=== PATIENT | male | born 1980 | race Caucasian/White ===

== ENCOUNTER 2018-08-10 17:29 | Emergency (ER) | payer SELFPAY ==
--- NOTE | 2018-08-10 17:50 | EDM.PDOC ---
ED HPI GENERAL MEDICAL PROBLEM - General Chief Complaint: ENT Problem Stated Complaint: SORE THROAT Time Seen by Provider: 08/10/18 17:31 Source of Information: Reports: Patient History Limitations: Reports: No Limitations - History of Present Illness INITIAL COMMENTS - FREE TEXT/NARRATIVE: HISTORY AND PHYSICAL: History of present illness: Patient is a 34-year-old male who presents to the emergency room today with complaints of sore throat, productive cough and body aches 5 days. He states he has been using [id number] Tylenol, cough and cold and Mucinex without any relief. Patient was a previous smoker but quit last December. Patient denies any fever, chills, headache, change in vision, syncope or near syncope. Denies any chest pain, back pain, or neck stiffness. Denies any abdominal pain, nausea , vomiting, diarrhea, constipation or dysuria. Has not noted any blood in urine or stool. Patient has been eating and drinking appropriately. Review of systems: As per history of present illness and below otherwise all systems reviewed and negative. Past medical history: As per history of present illness and as reviewed below otherwise noncontributory. Surgical history: As per history of present illness and as reviewed below otherwise noncontributory. Social history: See social history for further information Family history: As per history of present illness and as reviewed below otherwise noncontributory. Physical exam: General: Well-developed and well-nourished 38 year old male. Alert and oriented. Nontoxic appearing and in no acute distress. HEENT: Atraumatic, normocephalic, pupils equal and reactive bilaterally, negative for conjunctival pallor or scleral icterus, mucous membranes moist, TMs normal bilaterally, throat clear, neck supple, nontender, trachea midline. No drooling or trismus noted. No meningeal signs. No hot potato voice noted. Lungs: Clear to auscultation, breath sounds equal bilaterally, chest nontender. Heart: S1S2, regular rate and rhythm without overt murmur Abdomen: Soft, nondistended, nontender. Negative for masses or hepatosplenomegaly. Negative for costovertebral tenderness. Pelvis: Stable nontender. Genitourinary: Deferred. Rectal: Deferred. Skin: Intact, warm, dry. No lesions or rashes noted. Extremities: Atraumatic, moves all extremities per self without difficulty or deficits, negative for cords or calf pain. Neurovascular unremarkable. Neuro: Awake, alert, oriented. Cranial nerves II through XII unremarkable. Cerebellum unremarkable. Motor and sensory unremarkable throughout. Exam nonfocal. Notes: Chest x-ray shows no acute findings. I will place him on Z-Nolan and give him Phenergan with codeine as he states he has had no relief with [id number] products. Supportive care measures were reviewed and discussed. Voices understanding and is agreeable to plan of care. Denies any further questions or concerns at this time. Diagnostics: Chest x-ray Therapeutics: None Prescription: Z-nolan Phenergan w/ Codeine (#4oz) Impression: Pharyngitis Bronchitis Plan: 1. Take the antibiotics as prescribed. 2. Tylenol and/or ibuprofen as needed for pain management. Phenergan with codeine as directed. This medication may cause drowsiness; so do not take it while at work, driving, or needing to be functioning outside the house. 3. Follow-up with your primary caregiver as needed and as discussed. Return to the ED as needed and as discussed. Definitive disposition and diagnosis as appropriate pending reevaluation and review of above. - Related Data Allergies Allergy/AdvReac Type Severity Reaction Status Date / Time No Known Allergies Allergy Verified 08/10/18 17:38 Home Meds: Home Meds . [No Known Home Meds] 08/10/18 [History] Past Medical History - Past Health History Medical/Surgical History: Denies Medical/Surgical History HEENT History: Reports: None Cardiovascular History: Reports: None Respiratory History: Reports: None Gastrointestinal History: Reports: None Genitourinary History: Reports: None Musculoskeletal History: Reports: None Neurological History: Reports: None Psychiatric History: Reports: None Endocrine/Metabolic History: Reports: None Hematologic History: Reports: None Immunologic History: Reports: None Oncologic (Cancer) History: Reports: None Dermatologic History: Reports: None - Past Surgical History Head Surgeries/Procedures: Reports: None HEENT Surgical History: Reports: None Cardiovascular Surgical History: Reports: None Respiratory Surgical History: Reports: None GI Surgical History: Reports: None Male Surgical History: Reports: None Endocrine Surgical History: Reports: None Neurological Surgical History: Reports: None Musculoskeletal Surgical History: Reports: None Oncologic Surgical History: Reports: None Dermatological Surgical History: Reports: None Social & Family History - Family History Family Medical History: Noncontributory - Tobacco Use Smoking Status *Q: Former Smoker Used Tobacco, but Quit: Yes Month/Year Tobacco Last Used: [email or web address] - Caffeine Use Caffeine Use: Reports: Energy Drinks - Recreational Drug Use Recreational Drug Use: No ED ROS ENT - Review of Systems Review Of Systems: ROS reveals no pertinent complaints other than HPI. ED EXAM, ENT - Physical Exam Exam: See Below (See dictation) Course - Vital Signs Last Recorded V/S: Last Vital Signs Temp 97.3 F 08/10/18 17:39 Pulse 83 08/10/18 17:39 Resp 18 08/10/18 17:39 BP 163/99 H 08/10/18 17:39 Pulse Ox 97 08/10/18 17:39 Departure - Departure Time of Disposition: 18:22 Disposition: Home, Self-Care 01 Clinical Impression: Bronchitis Pharyngitis Qualifiers: Pharyngitis/tonsillitis etiology: unspecified etiology Qualified Code(s): J02.9 - Acute pharyngitis, unspecified - Discharge Information Referrals: PCP,None [Primary Care Provider] - Forms: ED Department Discharge Additional Instructions: The following information is given to patients seen in the emergency department who are being discharged to home. This information is to outline your options for follow-up care. We provide all patients seen in our emergency department with a follow-up referral. The need for follow-up, as well as the timing and circumstances, are variable depending upon the specifics of your emergency department visit. If you don't have a primary care physician on staff, we will provide you with a referral. We always advise you to contact your personal physician following an emergency department visit to inform them of the circumstance of the visit and for follow-up with them and/or the need for any referrals to a consulting specialist. The emergency department will also refer you to a specialist when appropriate. This referral assures that you have the opportunity for follow-up care with a specialist. All of these measure are taken in an effort to provide you with optimal care, which includes your follow-up. Under all circumstances we always encourage you to contact your private physician who remains a resource for coordinating your care. When calling for follow-up care, please make the office aware that this follow-up is from your recent emergency room visit. If for any reason you are refused follow-up, please contact the [facility] Emergency Department at and asked to speak to the emergency department charge nurse. [facility] [address], [place] [address] [facility] [address] [place] [id number] 1. Take the antibiotics as prescribed. 2. Tylenol and/or ibuprofen as needed for pain management. Phenergan with codeine as directed. This medication may cause drowsiness; so do not take it while at work, driving, or needing to be functioning outside the house. 3. Follow-up with your primary caregiver as needed and as discussed. Return to the ED as needed and as discussed.
--- NOTE | 2018-08-10 18:17 | CR ---
INDICATION: Cough, dyspnea, dysphagia for 4 days TECHNIQUE: Chest 2 views. COMPARISON: None FINDINGS: Cardiovascular and mediastinum: Heart size and vasculature are normal in caliber and appearance. Mediastinum is within normal limits. Lungs and pleural spaces: Lungs are clear. No sign of infiltrate or mass. No sign of pleural effusion. No pneumothorax. Bones and soft tissues: No significant findings. IMPRESSION: No sign of acute disease. Dictated by Aleena Kinney MD @ Aug 10 2018 6:16PM Signed by Dr. Aleena Kinney @ Aug 10 2018 6:16PM
[2018-08-11 00:14] VITALS: BP 143/96
== END 2018-08-10 18:32 | disposition home or self-care (01) ==
LOC: MW.ED 17:29
DX: J40 Bronchitis, not specified as acute or chronic (principal); J02.9 Acute pharyngitis, unspecified; Z87.891 Personal history of nicotine dependence
CPT/HCPCS: 71046; 71046-26; 99283-25

== ENCOUNTER 2018-09-15 19:01 | Emergency (ER) | payer BC ==
--- NOTE | 2018-09-15 20:38 | CR ---
INDICATION: Pain after fall down stairs. COMPARISON: None available. FINDINGS: AP, lateral and oblique views of the left ankle were obtained for a total of three views. There is an acute, oblique fracture of the lateral malleolus with approximately 25 percent posterior displacement of the minor fracture fragment. This is probably an intra-articular fracture. There is mild soft tissue swelling overlying the fracture site. There is no sign of additional fracture or dislocation. The ankle mortise is intact. The talar dome is intact. There is no sign of a joint effusion. No degenerative changes are seen. IMPRESSION: Acute, mildly displaced, intra-articular fracture of the lateral malleolus. Dictated by Niko Weir MD @ Sep 15 2018 8:34PM Signed by Dr. Niko Weir @ Sep 15 2018 8:36PM
--- NOTE | 2018-09-15 20:40 | CR ---
HISTORY: Pain after fall down stairs. COMPARISON: Left ankle from today. No previous foot films. FINDINGS: The left foot is examined with AP, lateral, and oblique views. The acute, moderately displaced fracture of the lateral malleolus is described on the accompanying ankle report. There is no sign of foot fracture or dislocation. There is mild swelling of the dorsal anterior foot, with no sign of any associated fracture of the metatarsals. Incidental note is made of a bone island in the lateral aspect of the proximal shaft of the 1st metatarsal. No significant degenerative disease is seen. IMPRESSION: No sign of acute osseous injury to the foot. Fracture of the lateral malleolus described on the accompanying ankle report. Dictated by Niko Weir MD @ Sep 15 2018 8:36PM Signed by Dr. Niko Weir @ Sep 15 2018 8:38PM
--- NOTE | 2018-09-15 20:50 | EDM.PDOC ---
ED HPI GENERAL MEDICAL PROBLEM - General Chief Complaint: Lower Extremity Injury/Pain Stated Complaint: LEFT FOOT INJURY Time Seen by Provider: 09/15/18 20:47 Source of Information: Reports: Patient - History of Present Illness INITIAL COMMENTS - FREE TEXT/NARRATIVE: HISTORY AND PHYSICAL: History of present illness: []Patient presents with left ankle pain after twisting his ankle on Friday 3- 4 days prior to arrival, moderate bruising and tenderness over the lateral malleolus unable to bear weight as well as pain across the dorsum of the foot, left lower extremity unaffected above the ankle entirely limb neurovascularly intact no open lesion No fever nausea vomiting chills sweats no other injury per patient Review of systems: As per history of present illness and below otherwise all systems reviewed and negative. Past medical history: As per history of present illness and as reviewed below otherwise noncontributory. Surgical history: As per history of present illness and as reviewed below otherwise noncontributory. Social history: No reported history of drug or alcohol abuse. Family history: As per history of present illness and as reviewed below otherwise noncontributory. Physical exam: HEENT: Atraumatic, normocephalic, pupils reactive, negative for conjunctival pallor or scleral icterus, mucous membranes moist, throat clear, neck supple, nontender, trachea midline. Lungs: Clear to auscultation, breath sounds equal bilaterally, chest nontender. Heart: S1S2, regular, negative for clicks, rubs, or JVD. Abdomen: Soft, nondistended, nontender. Negative for masses or hepatosplenomegaly. Negative for costovertebral tenderness. Pelvis: Stable nontender. Genitourinary: Deferred. Rectal: Deferred. Extremities: Atraumatic, negative for cords or calf pain. Neurovascular unremarkable. Left lower extremity as per history of present illness Neuro: Awake, alert, oriented. Cranial nerves II through XII unremarkable. Cerebellum unremarkable. Motor and sensory unremarkable throughout. Exam nonfocal. Diagnostics: [Left ankle 3 views Left foot 3 views ] Therapeutics: [Cam boot crutches nonweightbearing Rest ice ibuprofen ] Impression: [ eft ankle injury ] Definitive disposition and diagnosis as appropriate pending reevaluation and review of above. left foot Pain Score (Numeric/FACES): 8 - Related Data Allergies Allergy/AdvReac Type Severity Reaction Status Date / Time No Known Allergies Allergy Verified 09/15/18 19:13 Home Meds: Home Meds . [No Known Home Meds] 08/10/18 [History] Past Medical History - Past Health History Medical/Surgical History: Denies Medical/Surgical History HEENT History: Reports: None Cardiovascular History: Reports: None Respiratory History: Reports: None Gastrointestinal History: Reports: None Genitourinary History: Reports: None Musculoskeletal History: Reports: None Neurological History: Reports: None Psychiatric History: Reports: None Endocrine/Metabolic History: Reports: None Hematologic History: Reports: None Immunologic History: Reports: None Oncologic (Cancer) History: Reports: None Dermatologic History: Reports: None - Infectious Disease History Infectious Disease History: Reports: None - Past Surgical History Head Surgeries/Procedures: Reports: None HEENT Surgical History: Reports: None Cardiovascular Surgical History: Reports: None Respiratory Surgical History: Reports: None GI Surgical History: Reports: None Male Surgical History: Reports: None Endocrine Surgical History: Reports: None Neurological Surgical History: Reports: None Musculoskeletal Surgical History: Reports: None Oncologic Surgical History: Reports: None Dermatological Surgical History: Reports: None Social & Family History - Family History Family Medical History: Noncontributory - Tobacco Use Smoking Status *Q: Never Smoker - Caffeine Use Caffeine Use: Reports: Energy Drinks - Recreational Drug Use Recreational Drug Use: No Review of Systems - Review of Systems Review Of Systems: See Below ED EXAM, GENERAL - Physical Exam Exam: See Below Course - Vital Signs Last Recorded V/S: Last Vital Signs Temp 97.8 F 09/15/18 19:14 Pulse 85 09/15/18 19:14 Resp 16 09/15/18 19:14 BP 152/108 H 09/15/18 19:14 Pulse Ox 97 09/15/18 19:14 Departure - Departure Time of Disposition: 20:49 Disposition: Home, Self-Care 01 Condition: Good Clinical Impression: Left ankle injury - Discharge Information Referrals: PCP,None [Primary Care Provider] - Additional Instructions: Cam boot crutches nonweightbearing Rest ice ibuprofen Follow-up with orthopedist, call phone number below to schedule appropriate follow-up [facility] [address], [address] [place] [address] my orthopedic The following information is given to patients seen in the emergency department who are being discharged to home. This information is to outline your options for follow-up care. We provide all patients seen in our emergency department with a follow-up referral. The need for follow-up, as well as the timing and circumstances, are variable depending upon the specifics of your emergency department visit. If you don't have a primary care physician on staff, we will provide you with a referral. We always advise you to contact your personal physician following an emergency department visit to inform them of the circumstance of the visit and for follow-up with them and/or the need for any referrals to a consulting specialist. The emergency department will also refer you to a specialist when appropriate. This referral assures that you have the opportunity for follow-up care with a specialist. All of these measure are taken in an effort to provide you with optimal care, which includes your follow-up. Under all circumstances we always encourage you to contact your private physician who remains a resource for coordinating your care. When calling for follow-up care, please make the office aware that this follow-up is from your recent emergency room visit. If for any reason you are refused follow-up, please contact the [facility] emergency department at and asked to speak to the emergency department charge nurse.
[2018-09-15 21:42] VITALS: BP 140/95
== END 2018-09-15 20:56 | disposition home or self-care (01) ==
LOC: MW.ED 19:01
DX: S90.02XA Contusion of left ankle, initial encounter (principal); X50.1XXA Overexertion from prolonged static or awkward postures, initial encounter
CPT/HCPCS: 73610-26-LT; 73610-LT; 73630-26-LT; 73630-LT; 99283-25

== ENCOUNTER 2018-09-18 20:06 | Emergency (ER) | payer BC ==
--- NOTE | 2018-09-18 20:13 | EDM.PDOC ---
ED HPI GENERAL MEDICAL PROBLEM - General Stated Complaint: FRACTURE PAIN Time Seen by Provider: 09/18/18 20:08 Source of Information: Reports: Patient History Limitations: Reports: No Limitations - History of Present Illness INITIAL COMMENTS - FREE TEXT/NARRATIVE: HISTORY AND PHYSICAL: History of present illness: Patient is a 38-year-old male who presents to the emergency room today with complaints of left ankle pain. He was seen in the emergency room on 09/15/18 for a 3-day-old in color injury. X-ray on 09/15/18 shows an acute, mildly displaced, intra-articular fracture of the lateral malleolus. He was given a cam walker boot and crutches. Encouraged to follow-up with primary care. At that time he declined pain medication and was told to use Tylenol and ibuprofen over-the- counter. Denies any new injury, trauma or falls. Denies any numbness, tingling or saddle paresthesia. Review of systems: As per history of present illness and below otherwise all systems reviewed and negative. Past medical history: As per history of present illness and as reviewed below otherwise noncontributory. Surgical history: As per history of present illness and as reviewed below otherwise noncontributory. Social history: See social history for further information Family history: As per history of present illness and as reviewed below otherwise noncontributory. Physical exam: General: Well-developed and well-nourished 30 child male. Alert and oriented. Nontoxic appearing and in no acute distress. HEENT: Atraumatic, normocephalic, pupils equal and reactive bilaterally, negative for conjunctival pallor or scleral icterus, mucous membranes moist, trachea midline. No drooling or trismus noted. No meningeal signs. No hot potato voice noted. Lungs: Clear to auscultation, breath sounds equal bilaterally, chest nontender. Heart: S1S2, regular rate and rhythm without overt murmur Extremities: Ambulatory into the emergency room without difficulty or deficits. Pain with palpation of the left lateral ankle with nursing noted to the anterior foot into the toes. Strong pedal pulse bilaterally. Otherwise moves all other extremities per self without difficulty or deficits, negative for cords or calf pain. Neurovascular unremarkable. Neuro: Awake, alert, oriented. Cranial nerves II through XII unremarkable. Cerebellum unremarkable. Motor and sensory unremarkable throughout. Exam nonfocal. Notes: Discussed the importance of following up with the orthopedic provider. Medication and supportive care measures were reviewed and discussed. Voices understanding and is agreeable to plan of care. Denies any further questions or concerns at this time. Diagnostics: None Therapeutics: [place] Prescription: Tramadol (#30) Impression: Encounter for pain management History of ankle fracture Plan: 1. Rest, ice, elevate the affected extremity. Continue using the crutches and CAM walker boot 2. Tylenol and/or Ibuprofen as needed for pain management. Tramadol for moderate to severe pain. This medication may cause drowsiness a do not take it will driving her needing to be functioning outside of the house. 3. Follow up with the Orthopedic provider as we discussed. Return to the ED as needed and as discussed. Definitive disposition and diagnosis as appropriate pending reevaluation and review of above. left ankle Pain Score (Numeric/FACES): 8 - Related Data Allergies Allergy/AdvReac Type Severity Reaction Status Date / Time No Known Allergies Allergy Verified 09/18/18 20:16 Home Meds: Home Meds traMADol [Ultram] 50 mg PO Q4H PRN #30 tab 09/18/18 [Rx] Past Medical History - Past Health History Medical/Surgical History: Denies Medical/Surgical History HEENT History: Reports: None Cardiovascular History: Reports: None Respiratory History: Reports: None Gastrointestinal History: Reports: None Genitourinary History: Reports: None Musculoskeletal History: Reports: None Neurological History: Reports: None Psychiatric History: Reports: None Endocrine/Metabolic History: Reports: None Hematologic History: Reports: None Immunologic History: Reports: None Oncologic (Cancer) History: Reports: None Dermatologic History: Reports: None - Infectious Disease History Infectious Disease History: Reports: None - Past Surgical History Head Surgeries/Procedures: Reports: None HEENT Surgical History: Reports: None Cardiovascular Surgical History: Reports: None Respiratory Surgical History: Reports: None GI Surgical History: Reports: None Male Surgical History: Reports: None Endocrine Surgical History: Reports: None Neurological Surgical History: Reports: None Musculoskeletal Surgical History: Reports: None Oncologic Surgical History: Reports: None Dermatological Surgical History: Reports: None Social & Family History - Family History Family Medical History: Noncontributory - Caffeine Use Caffeine Use: Reports: Energy Drinks Review of Systems - Review of Systems Review Of Systems: ROS reveals no pertinent complaints other than HPI. ED EXAM, GENERAL - Physical Exam Exam: See Below (See dictation) Course - Vital Signs Last Recorded V/S: Last Vital Signs Temp 97.8 F 09/18/18 20:16 Pulse 86 09/18/18 20:16 Resp 88 H 09/18/18 20:16 BP 146/104 H 09/18/18 20:16 Pulse Ox 98 09/18/18 20:16 - Orders/Labs/Meds Orders: Active Orders 24 hr Category Date Time Status Acetaminophen/HYDROcodone [[place] 325-5 MG] Med 09/18/18 20:23 Once 2 tab PO ONETIME ONE Departure - Departure Time of Disposition: 20:26 Disposition: Home, Self-Care 01 Clinical Impression: Encounter for pain management, History of ankle fracture - Discharge Information Prescriptions: traMADol [Ultram] 50 mg PO Q4H PRN #30 tab PRN Reason: Pain Instructions: Acute Pain, Adult Additional Instructions: The following information is given to patients seen in the emergency department who are being discharged to home. This information is to outline your options for follow-up care. We provide all patients seen in our emergency department with a follow-up referral. The need for follow-up, as well as the timing and circumstances, are variable depending upon the specifics of your emergency department visit. If you don't have a primary care physician on staff, we will provide you with a referral. We always advise you to contact your personal physician following an emergency department visit to inform them of the circumstance of the visit and for follow-up with them and/or the need for any referrals to a consulting specialist. The emergency department will also refer you to a specialist when appropriate. This referral assures that you have the opportunity for follow-up care with a specialist. All of these measure are taken in an effort to provide you with optimal care, which includes your follow-up. Under all circumstances we always encourage you to contact your private physician who remains a resource for coordinating your care. When calling for follow-up care, please make the office aware that this follow-up is from your recent emergency room visit. If for any reason you are refused follow-up, please contact the Emergency Department at and asked to speak to the emergency department charge nurse. Primary Care [address] [place] [address] [facility] [address] [place] [address] Specialty Care - [facility] Professional Building [address] [facility], [address] [place] [address] 1. Rest, ice, elevate the affected extremity. Continue using the crutches and CAM walker boot 2. Tylenol and/or Ibuprofen as needed for pain management. Tramadol for moderate to severe pain. This medication may cause drowsiness a do not take it will driving her needing to be functioning outside of the house. 3. Follow up with the Orthopedic provider as we discussed. Return to the ED as needed and as discussed. - My Orders Last 24 Hours: My Active Orders 09/18/18 20:23 Acetaminophen/HYDROcodone [[place] 325-5 MG] 2 tab PO ONETIME ONE - Assessment/Plan Last 24 Hours: My Active Orders 09/18/18 20:23 Acetaminophen/HYDROcodone [[place] 325-5 MG] 2 tab PO ONETIME ONE
[2018-09-18] MEDS ORDERED: Acetaminophen/HYDROcodone 325-5 MG Tab PO ONE (20:23)
[2018-09-18 20:35] VITALS: BP 140/99
== END 2018-09-18 20:44 | disposition home or self-care (01) ==
LOC: MW.ED 20:06
DX: S82.62XD Displaced fracture of lateral malleolus of left fibula, subsequent encounter for closed fracture with routine healing (principal); W10.9XXD Fall (on) (from) unspecified stairs and steps, subsequent encounter
CPT/HCPCS: 99283; A9270

== ENCOUNTER 2018-09-30 09:15 | Day surgery (SDC) | payer BC ==
--- NOTE | 2018-09-30 08:29 | PCM.PREANE ---
Preanesthetic Assessment - Anesthesia/Transfusion/Family Hx Anesthesia History: No Prior Anesthesia Family History of Anesthesia Reaction: No Transfusion History: No Prior Transfusion(s) Intubation History: Unknown - Review of Systems General: No Symptoms Pulmonary: No Symptoms Cardiovascular: No Symptoms Gastrointestinal: No Symptoms Neurological: No Symptoms Other: Reports: None - Physical Assessment Height: 5 ft 9 in Weight: 117.934 kg ASA Class: 2 Mental Status: Alert & Oriented x3 Airway Class: Mallampati = 2 Dentition: Reports: Normal Dentition Thyro-Mental Finger Breadths: 3 Mouth Opening Finger Breadths: 3 ROM/Head Extension: Full Lungs: Clear to Auscultation, Normal Respiratory Effort Cardiovascular: Regular Rate, Regular Rhythm - Allergies Allergies/Adverse Reactions: Allergies Allergy/AdvReac Type Severity Reaction Status Date / Time No Known Allergies Allergy Verified 09/25/18 10:08 - Blood Blood Available: No - Anesthesia Plan Pre-Op Medication Ordered: None - Acknowledgements Anesthesia Type Planned: General Anesthesia Pt an Appropriate Candidate for the Planned Anesthesia: Yes Alternatives and Risks of Anesthesia Discussed w Pt/Guardian: Yes Pt/Guardian Understands and Agrees with Anesthesia Plan: Yes PreAnesthesia Questionnaire - Past Health History Medical/Surgical History: Denies Medical/Surgical History HEENT History: Reports: None Cardiovascular History: Reports: None Respiratory History: Reports: None Gastrointestinal History: Reports: None Genitourinary History: Reports: None Musculoskeletal History: Reports: Fracture Other Musculoskeletal History: left ankle fx.,hx fx hand as a child Neurological History: Reports: None Psychiatric History: Reports: None Endocrine/Metabolic History: Reports: Obesity/BMI 30+ Hematologic History: Reports: None Immunologic History: Reports: None Oncologic (Cancer) History: Reports: None Dermatologic History: Reports: None - Infectious Disease History Infectious Disease History: Reports: None - Past Surgical History Head Surgeries/Procedures: Reports: None HEENT Surgical History: Reports: None Cardiovascular Surgical History: Reports: None Respiratory Surgical History: Reports: None GI Surgical History: Reports: None Male Surgical History: Reports: None Endocrine Surgical History: Reports: None Neurological Surgical History: Reports: None Musculoskeletal Surgical History: Reports: None Oncologic Surgical History: Reports: None Dermatological Surgical History: Reports: None - SUBSTANCE USE Smoking Status *Q: Former Smoker Tobacco Use Within Last Twelve Months: Cigarettes Recreational Drug Use History: No - HOME MEDS Home Medications: Home Meds Hydrocodone/Acetaminophen [Hydrocodon-Acetaminophen 5-325] 1 - 2 tab PO Q4H PRN 09/25/18 [History] - CURRENT (IN HOUSE) MEDS Current Meds: Current Medications Hydrocodone Bitart/Acetaminophen ([place] 325-5 Mg) 1 - 2 tab PO Q4H PRN PRN Reason: Pain Cefazolin Sodium/Dextrose 2 gm (/ Premix) 50 mls @ 100 mls/hr IV ONCALL LIZ Lactated Ringer's (Ringers, Lactated) 1,000 mls @ 100 mls/hr IV ASDIRECTED LIZ Discontinued Medications Bupivacaine HCl (Sensorcaine-Mpf 0.25%) Confirm Administered Dose 10 ml .ROUTE .STK-MED ONE Stop: 09/30/18 07:41
[~2018-09-30 09:15] MED LIST: Acetaminophen/HYDROcodone 325-5 MG Tab PO PRN; Bupivacaine 0.25% 10 ML SDV ONE; Lactated Ringers 1,000 ML IV SCH; ceFAZolin 2 GM in Premix Bag 1 BAG IV SCH
[2018-09-30] MEDS ORDERED: Lidocaine 2% 5 ML SDV ONE (10:09)
[2018-09-30] MEDS ORDERED: Propofol 200 MG/20 ML SDV ONE (10:09)
[2018-09-30] MEDS ORDERED: Midazolam 1 MG/ML 2 ML SDV ONE ×2 (10:09→10:38)
[2018-09-30] MEDS ORDERED: fentaNYL 100 MCG/2 ML SDV ONE ×4 (10:09→12:50)
[2018-09-30] MEDS ORDERED: Ondansetron 4 MG/2 ML SDV ONE (10:09)
[2018-09-30] MEDS ORDERED: ceFAZolin/Dextrose,Iso-Osmotic 2 GM/50 ML Duplex Bag IV ONE (10:10)
[2018-09-30] MEDS ORDERED: Bupivacaine 0.25% 10 ML SDV ONE (10:19)
[2018-09-30] MEDS ORDERED: Ketamine 500 mg/10 ML MDV ONE (10:21)
--- NOTE | 2018-09-30 10:35 | PCM.OPNOTE ---
- General Post-Op/Procedure Note Date of Surgery/Procedure: 09/30/18 Operative Procedure(s): ORIF left distal fibula Post-Op Diagnosis: L distal fibula fracture Anesthesia Technique: General LMA Primary Surgeon: Marian Cohen International Student Advisor: Violette Baker in mLs: 5 Condition: Good Free Text/Narrative:: tt=82 min #[id number]
[2018-09-30] MEDS ORDERED: Labetalol 100 MG/20 ML MDV ONE (11:15)
[2018-09-30] MEDS ORDERED: Ketorolac 30 MG/ML SDV ONE (11:29)
[2018-09-30] MEDS ORDERED: 50% Dextrose in Water 50 ML Syringe IVPUSH PRN (11:35)
[2018-09-30] MEDS ORDERED: fentaNYL 100 MCG/2 ML SDV IVPUSH PRN (11:35)
[2018-09-30] MEDS ORDERED: Albuterol 0.083% 2.5 MG/3 ML Neb Soln NEB PRN (11:35)
[2018-09-30] MEDS ORDERED: Atropine 0.1 MG/ML 10 ML Syringe IVPUSH PRN ×2 (11:35)
[2018-09-30] MEDS ORDERED: EPINEPHrine 1:10,000 1 MG/10 ML Syringe IVPUSH PRN (11:35)
[2018-09-30] MEDS ORDERED: Naloxone 0.4 MG/ML Syringe IVPUSH PRN (11:35)
[2018-09-30] MEDS ORDERED: HYDROmorphone 2 MG/ML Syringe ONE (12:30)
[2018-09-30] MEDS: HYDROmorphone 2 MG/ML Syringe IVPUSH PRN ×4 (12:59→13:54)
[2018-09-30] MEDS ORDERED: Labetalol 100 MG/20 ML MDV IVPUSH PRN (13:44)
[2018-09-30] MEDS ORDERED: Acetaminophen 1,000 MG in Premix Bag 1 BAG IV SCH (13:45)
--- NOTE | 2018-09-30 14:11 | PCM.POSTAN ---
POST ANESTHESIA ASSESSMENT - MENTAL STATUS Mental Status: Alert, Oriented - RESPIRATORY Respiratory Status: Respiratory Rate WNL, Airway Patent, O2 Saturation Stable - CARDIOVASCULAR CV Status: Pulse Rate WNL, Blood Pressure Stable - GASTROINTESTINAL GI Status: No Symptoms - PAIN Pain Score: 6 - POST OP HYDRATION Hydration Status: Adequate & Stable - OBSERVATIONS Free Text/Narrative:: no anesthesia problems
--- NOTE | 2018-09-30 14:27 | CR ---
EXAMINATION: Left ankle HISTORY: Surgery COMPARISON: 09/15/2018 TECHNIQUE: 5 views FINDINGS/IMPRESSION: Operative control films demonstrate screw and plate fixation of the distal fibular fracture. Ankle mortise and talar dome appear intact.
[2018-09-30] MEDS: oxyCODONE 5 MG Tab PO PRN ×2 (14:36→15:38)
[2018-09-30 16:25] VITALS: BP 143/82; PULSE 86
--- NOTE | 2018-09-30 17:09 | OR ---
SURGEON: Marian Cohen MD DATE OF PROCEDURE: 09/30/2018 PREOPERATIVE DIAGNOSIS: Left distal fibula fracture, displaced. POSTOPERATIVE DIAGNOSIS: Left distal fibula fracture, displaced. PROCEDURE: Open reduction and internal fixation of left distal fibula. PRIMARY SURGEON: Marian Cohen MD. STEAM ENGINEER: Violette Baker PA-C. ANESTHESIA: General. ESTIMATED BLOOD LOSS: 5 mL. TOURNIQUET TIME: 82 minutes. COMPLICATIONS: None. DVT PROPHYLAXIS: PAS boot to the nonoperative leg. IMPLANTS USED: Vinny 5-hole distal fibula locking plate with combination of 3.5 mm locking and nonlocking screws. BRIEF HISTORY: Ravinder is a 38-year-old male who sustained a fall approximately 2 weeks ago, injuring his left ankle. X-rays did show shortening of the distal fibula. Due to the unstable nature of the injury, I did recommend surgical intervention. The risks and goals of the procedure were discussed with the patient and were documented preoperatively. He agreed to proceed. DESCRIPTION OF PROCEDURE: The patient was properly identified and brought to the operating room. He was transferred from the OR cart and placed on the operating table in supine position. General anesthesia was administered. After adequate anesthesia was obtained, a well-padded tourniquet was applied to the left lower extremity. The left lower extremity was then prepped in standard fashion using ChloraPrep solution. It was then sterilely draped. A time-out was performed to ensure correct site and procedure. Preoperative antibiotics were given. The surgical site had been marked preoperatively. An Esmarch was used to exsanguinate the left lower extremity and the tourniquet was inflated to 250 mmHg. An incision was made centered over the fracture site. Subcutaneous tissues were dissected. Care was taken to look for the superficial peroneal nerve and this was not encountered. The fracture was identified. It was quite distal in nature and there was quite a bit of shortening with lateral positioning of the proximal fragment. The wound was copiously irrigated with saline solution to remove the fracture hematoma. Bone reduction clamps were then placed on the proximal and distal fragments. I was unable to mobilize the fracture at all. The periosteal elevator was then placed into the fracture site and the fracture was opened. It appeared to have a large medial fragment of the distal fibula which was cut. The ankle positioning was readjusted and multiple times were made at reduction. Eventually, we were able to strip some of the soft tissue to allow better mobilization of the fracture. A bone reduction clamp was then placed to hold the fracture in position. The C-arm image was used which confirmed that the fracture was out to length and well reduced. An interfragmentary screw was then passed in a proximal to distal fashion, which provided good provisional fixation of the fracture. A distal fibula locking plate was then placed. Due to the large spike medially, I elected to proceed with a 5-hole plate. 3.5 mm screws were used proximally. I elected not to place a screw into the most proximal hole as we appeared to have good fixation with the other holes. The majority of the distal fragment piece was quite transverse in nature. In 2 of the distal screws, I did angle the trajectory to help capture this portion of the bone. There was some comminution of the bone laterally at the fracture site. Final C-arm images confirmed acceptable reduction of the fracture. The ankle mortise was intact. External rotation stress views using live fluoroscopy along with a lateral pull using a bone hook was used to evaluate the syndesmosis and no instability was noted. The wound was then copiously irrigated with saline solution. 0 Vicryl was used to close the deep tissues. The tourniquet was deflated and no excess bleeding was noted. 3-0 Monocryl was used to close the subcutaneous tissues and the skin was closed with sofía. Xeroform gauze was placed over the wound and a bulky dressing was applied. He was then placed in a well-padded posterior splint with medial and lateral stabilizing slabs. He was awakened from his anesthetic and transferred back to the operating room cart. He was brought to recovery room in stable condition. All needle and sponge counts were correct. RICH / SVEN /[id number]
--- NOTE | 2018-09-30 19:17 | PCM48HPAN ---
Post Anesthesia Note - EVALUATION WITHIN 48HRS OF ANESTHETIC Vital Signs in Normal Range: Yes Patient Participated in Evaluation: Yes Respiratory Function Stable: Yes Airway Patent: Yes Cardiovascular Function Stable: Yes Hydration Status Stable: Yes Pain Control Satisfactory: Yes Nausea and Vomiting Control Satisfactory: Yes Mental Status Recovered: Yes Resp Rate: 18 - COMMENTS/OBSERVATIONS Free Text/Narrative:: no anesthesia problems
== END 2018-09-30 16:10 | disposition home or self-care (01) ==
LOC: MW.SDS 09:15
PROVIDERS: ATTEND Orthopaedic Surgery
DX: S82.832A Other fracture of upper and lower end of left fibula, initial encounter for closed fracture (principal); E66.9 Obesity, unspecified; Z68.38 Body mass index [BMI] 38.0-38.9, adult; W10.8XXA Fall (on) (from) other stairs and steps, initial encounter; Z87.891 Personal history of nicotine dependence
CPT/HCPCS: 27792; A9270; J0131; J0690; J1170; J1885; J2001; J2250; J2405; J2704; J3010; J3490; J7120; 01480; C1713